=== PATIENT | female | born 2000 | race Caucasian/White ===

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

== ENCOUNTER → 2021-01-23 | Outpatient (CLI) | payer BC | LOC: LAB FS 10:23 | PROVIDERS: ATTEND Family Medicine | DX: Z00.00 Encounter for general adult medical examination without abnormal findings (principal); N92.6 Irregular menstruation, unspecified | CPT/HCPCS: 36415; 83036; 84443; 87210; 87491; 87591 ==

== ENCOUNTER 2021-04-07 08:15 | Outpatient (RCR) | payer BC | END 2021-07-06 | disposition home or self-care (01) | LOC: CARD 08:15 | PROVIDERS: ATTEND Family Medicine | DX: R00.2 Palpitations (principal) | CPT/HCPCS: 93225; 93226 ==

== ENCOUNTER → 2021-11-10 | Outpatient (CLI) | payer BC | LOC: LAB FS 09:52 | PROVIDERS: ATTEND Family Medicine | DX: Z32.01 Encounter for pregnancy test, result positive (principal) | CPT/HCPCS: 36415; 84702 ==

== ENCOUNTER → 2022-03-17 | Outpatient (CLI) | payer BC ==
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
== END ==
LOC: RAD FS 09:31
PROVIDERS: ATTEND Registered Nurse Emergency
DX: S19.9XXA Unspecified injury of neck, initial encounter (principal)
CPT/HCPCS: 72040

== ENCOUNTER → 2022-09-01 | Outpatient (CLI) | payer BC, MEDICAID ==
--- NOTE | 2022-09-01 15:19 | Diagnostic Imaging Report ---
INDICATION: anatomy survey. TECHNIQUE: Multiple real-time grayscale images were obtained over the gravid uterus. COMPARISON: None FINDINGS: The cervix measures 4.5 cm in length. There is a single live intrauterine in the breech position. The placenta is anterior in location, and there is no evidence of previa or placental abruption. The ANA measures 14.6 cm. anatomy survey was performed and the following structures are visualized and normal: Stomach, four-chamber heart, umbilical cord cord insertion, three-vessel cord, cerebellum, cisterna magna, cerebral ventricles, spine, right ventricular outflow tract, left ventricular outflow tract, kidneys, profile and extremities. Due to advanced gestational age, the maternal adnexa are suboptimally evaluated. Biometrical measurements are as follows: Biparietal 4.52 cm, age 19 weeks 5 days. Head circumference 17.28 cm, age 19 weeks 6 days. Abdominal circumference 13.83 cm, age 19 weeks 2 days. Femur length 3.11 cm, age 19 weeks 5 days. Sonographic estimate age: 19 weeks 5 days. Sonographic estimated date of delivery: 01/21/2023. Estimated Weight: 295 gm (+/- 43 gm). LMP percentile: 40%. heart rate: 144 beats per minute. number: 1 of 1. IMPRESSION: Single live intrauterine has normal anatomy survey. Dictated by: Dictated on workstation # [id number]
== END ==
LOC: RAD FS 09:42
PROVIDERS: ATTEND Obstetrics & Gynecology
DX: Z34.02 Encounter for supervision of normal first pregnancy, second trimester (principal); Z3A.19 19 weeks gestation of pregnancy
CPT/HCPCS: 76805

== ENCOUNTER 2022-10-27 18:30 | Outpatient (CLI) | payer BC, MEDICAID ==
[~2022-10-27] VITALS: Ht 167 cm; Wt 113.6 kg
[2022-10-27 19:22] VITALS: BP 116/73
[2022-10-27 19:40] LABS: BILIRUBIN,URINE NEGATIVE (NEGATIVE); CLARITY,URINE CLEAR; COLOR,URINE YELLOW; GLUCOSE, URINE (UA) NEGATIVE (NEGATIVE); KETONES,URINE NEGATIVE (NEGATIVE); LEUKOCYTE ESTERASE ,URINE NEGATIVE (NEGATIVE); NITRITE,URINE NEGATIVE (NEGATIVE); PROTEIN,URINE NEGATIVE (NEGATIVE)
[2022-10-27 19:52] LABS: BACTERIA,URINE TRACE /HPF; RBC,URINE RARE /HPF
[2022-10-27 20:05] VITALS: BP 123/72
[2022-10-27 20:15] VITALS: BP 123/72
--- NOTE | 2022-10-28 09:19 | Physician Query-Final Dx ---
10/28/22 0918: Clinic Account Progress/Dx Physician Query: Please give diagnosis Please include # weeks gestation Date of Service Oct 27, 2022 at 18:30 JOY CARROLL MD 10/29/22 0757: Clinic Account Progress/Dx DIAGNOSIS: Diagnosis False labor at 28 weeks gestation Oct 28, 2022 09:18 JOY CARROLL MD Oct 29, 2022 07:57
== END 2022-10-27 20:15 ==
LOC: LDRP 18:30 → WSo 18:30
PROVIDERS: ATTEND Obstetrics & Gynecology
DX: O26.93 Pregnancy related conditions, unspecified, third trimester (principal); O41.93X0 Disorder of amniotic fluid and membranes, unspecified, third trimester, not applicable or unspecified; Z3A.28 28 weeks gestation of pregnancy
CPT/HCPCS: 81000; 99214

== ENCOUNTER → 2022-12-02 | Outpatient (CLI) | payer BC, MEDICAID | LOC: LABNPT 14:56 | PROVIDERS: ATTEND Obstetrics & Gynecology | DX: O13.9 Gestational [pregnancy-induced] hypertension without significant proteinuria, unspecified trimester (principal); Z3A.00 Weeks of gestation of pregnancy not specified | CPT/HCPCS: 82570; 84156 ==

== ENCOUNTER → 2022-12-08 | Outpatient (CLI) | payer BC, MEDICAID ==
[~2022-12-08] MED LIST: ALBU8.5H6 PO; CEPH500T PO; LABE200T10 PO; PREN-37 PO
== END ==
LOC: LABNPT 12:18
PROVIDERS: ATTEND Obstetrics & Gynecology
DX: O13.9 Gestational [pregnancy-induced] hypertension without significant proteinuria, unspecified trimester (principal); Z3A.00 Weeks of gestation of pregnancy not specified
CPT/HCPCS: 82570; 84156

== ENCOUNTER 2022-12-11 16:49 | Outpatient (CLI) | payer BC, MEDICAID ==
[~2022-12-11] VITALS: Ht 167.7 cm; Wt 113.6 kg
[2022-12-11] MEDS ORDERED: LABE200T10 PO (17:14)
[2022-12-11] MEDS ORDERED: PREN-37 PO (17:16)
[2022-12-11] MEDS ORDERED: ALBU8.5H6 PO (17:16)
[2022-12-11 17:20] VITALS: BP 154/90
[2022-12-11 17:25] VITALS: BP 130/92
[2022-12-11 17:36] LABS: BILIRUBIN,URINE NEGATIVE (NEGATIVE); CLARITY,URINE CLEAR; COLOR,URINE YELLOW; GLUCOSE, URINE (UA) NEGATIVE (NEGATIVE); KETONES,URINE NEGATIVE (NEGATIVE); LEUKOCYTE ESTERASE ,URINE NEGATIVE (NEGATIVE); NITRITE,URINE NEGATIVE (NEGATIVE); PROTEIN,URINE 2+ (NEGATIVE)
[2022-12-11 17:49] LABS: RBC,URINE RARE /HPF; WBC,URINE 0-2 /HPF
[2022-12-11 17:50] LABS: BACTERIA,URINE MODERATE /HPF
[2022-12-11 17:55] VITALS: BP 138/85
[2022-12-11] MEDS ORDERED: CEPH500T PO (18:07)
[2022-12-11 18:15] VITALS: BP 138/85
--- NOTE | 2022-12-14 08:44 | Physician Query-Final Dx ---
GIO12/14/22 0844: Clinic Account Progress/Dx Physician Query: Please give diagnosis Please include # weeks gestation Date of Service Dec 11, 2022 at 16:49 DELMY TORIBIO DO 12/14/22 0946: Clinic Account Progress/Dx DIAGNOSIS: Diagnosis 33 week IUP Mild PreE Decreased movement GIO,NovDec 14, 2022 08:44 DELMY TORIBIO DO Dec 14, 2022 09:46
== END 2022-12-11 18:15 | disposition home or self-care (01) ==
LOC: LDRP 16:49 → WSo 16:49
PROVIDERS: ATTEND Obstetrics & Gynecology
DX: O36.8190 Decreased fetal movements, unspecified trimester, not applicable or unspecified (principal); Z3A.00 Weeks of gestation of pregnancy not specified
CPT/HCPCS: 81000; 87088; G0463; 99212

== ENCOUNTER → 2022-12-14 | Outpatient (CLI) | payer BC, MEDICAID | LOC: LABNPT 15:49 | PROVIDERS: ATTEND Obstetrics & Gynecology | DX: O14.93 Unspecified pre-eclampsia, third trimester (principal); Z3A.00 Weeks of gestation of pregnancy not specified | CPT/HCPCS: 82570; 84156 ==

== ENCOUNTER 2022-12-15 12:36 | Outpatient (CLI) | payer BC, MEDICAID ==
[~2022-12-15] VITALS: Ht 170 cm; Wt 120.2 kg
[2022-12-15 13:00] VITALS: BP 134/100
[2022-12-15 13:15] VITALS: BP 136/84
[2022-12-15 13:22] LABS: BASOPHILS % (AUTO) 0 % (0-10); EOSINOPHILS % (AUTO) 0 % (0-10); HEMATOCRIT 39 % (35-52); HEMOGLOBIN 13.5 g/dL (11.5-16.0); LYMPHOCYTES # (AUTO) 2.6 10^3/uL (1.0-4.0); LYMPHOCYTES % (AUTO) 22 % (12-44); MEAN CORPUSCULAR HEMOGLOBIN 30 pg (25-34); MEAN CORPUSCULAR HGB CONC 35 g/dL (32-36); MEAN CORPUSCULAR VOLUME 87 fL (80-99); MEAN PLATELET VOLUME 11.5 fL (9.0-12.2); MONOCYTES # (AUTO) 0.7 10^3/uL (0.0-1.0); MONOCYTES % (AUTO) 6 % (0-12); NEUTROPHILS # (AUTO) 8.3 10^3/uL (1.8-7.8); NEUTROPHILS % (AUTO) 71 % (42-75); PLATELET COUNT 192 10^3/uL (130-400); WHITE BLOOD COUNT 11.6 10^3/uL (4.3-11.0)
[2022-12-15 13:30] VITALS: BP 132/85
[2022-12-15 13:38] LABS: ALBUMIN 2.8 GM/DL (3.2-4.5); POTASSIUM 3.5 MMOL/L (3.6-5.0)
[2022-12-15 13:39] LABS: CALCIUM 8.6 MG/DL (8.5-10.1)
[2022-12-15 13:40] LABS: TOTAL PROTEIN 5.8 GM/DL (6.4-8.2)
[2022-12-15 13:42] LABS: BILIRUBIN,TOTAL 0.2 MG/DL (0.1-1.0)
[2022-12-15 13:44] LABS: CREATININE SERUM 0.69 MG/DL (0.60-1.30)
[2022-12-15 13:45] VITALS: BP 127/82
[2022-12-15 13:47] LABS: URIC ACID 6.2 MG/DL (2.6-7.2)
[2022-12-15 14:00] VITALS: BP 143/92
[2022-12-15 14:15] VITALS: BP 113/74
--- NOTE | 2022-12-16 07:45 | Physician Query-Final Dx ---
GIO,12/16/22 0745: Clinic Account Progress/Dx Physician Query: Please give diagnosis Please include # weeks gestation Date of Service Dec 15, 2022 at 12:36 DELMY TORIBIO DO 12/16/22 0950: Clinic Account Progress/Dx DIAGNOSIS: Diagnosis 34 week IUP PreE Mild GIO,NovDec 16, 2022 07:45 DELMY TORIBIO DO Dec 16, 2022 09:50
== END 2022-12-15 14:25 | disposition home or self-care (01) ==
LOC: WSo 12:36 → LDRP 12:36 → WSo 14:25
PROVIDERS: ATTEND Obstetrics & Gynecology
DX: O14.03 Mild to moderate pre-eclampsia, third trimester (principal); Z3A.34 34 weeks gestation of pregnancy
CPT/HCPCS: 80053; 84550; 85025; G0463; 36415; 99212

== ENCOUNTER → 2022-12-18 | Outpatient (CLI) | payer BC, MEDICAID | LOC: LABNPT 13:15 | PROVIDERS: ATTEND Obstetrics & Gynecology | DX: O14.93 Unspecified pre-eclampsia, third trimester (principal); Z3A.00 Weeks of gestation of pregnancy not specified | CPT/HCPCS: 82570; 84156 ==

== ENCOUNTER 2022-12-21 09:50 | Inpatient (IN) | payer BC, MEDICAID ==
[~2022-12-21] VITALS: Ht 167.7 cm; Wt 123.1 kg
[2022-12-21] VITALS (22 sets, daily range): BP systolic 120–158; BP diastolic 71–99
--- OUTSIDE RECORDS SUMMARY | 2022-12-21 10:05 | XMS REPORT | Clinical Summary ---
Author Author [facility] Organization [facility] Address Unknown Phone Unavailable Care Team Providers Care Spanish Medical Interpreter Name Role Phone PCP Unavailable Allergies Not on File Medications Not on file Active Problems Not on file Social History Date Tobacco Use Types Packs/Day Years Used Smoking Tobacco: Never Assessed Sex Assigned at Date Recorded Not on file Last Filed Vital Signs Not on file Plan of Treatment Health Maintenance Due Date Last Done Comments Hepatitis C Screen 2001 Td/Tdap# 2001 COVID-19 Vaccine (#1) 06/21/2002 HPV Vaccine (1 - 2-dose 2012 series) Influenza Vaccine (#1) 2022 Social Determinants of 11/01/2022 Health# MCV4 Vaccine Aged Out No longer eligible based on patient's age to complete this topic Pneumococcal Vaccine: Aged Out No longer eligib le based on patient's age to Pediatrics (0 to 5 Years) complete this topic and At-Risk Patients (6 to 64 Years) Results Not on filefrom Last 3 Months
[2022-12-21] MEDS ORDERED: CALCIUM GLUC. 10% 4.65 MEQ/10 ML VIAL IV PRN (10:15)
[2022-12-21] MEDS ORDERED: D5 LR IV SOLUTION 1,000 ML IV SCH (10:30)
[2022-12-21] MEDS ORDERED: MAGNESIUM 4 GM/100 ML IVPB 100 ML IV ONE (10:30)
[2022-12-21 10:36] LABS: BASOPHILS % (AUTO) 0 % (0-10); EOSINOPHILS # (AUTO) 0.1 10^3/uL (0.0-0.3); EOSINOPHILS % (AUTO) 1 % (0-10); HEMATOCRIT 38 % (35-52); HEMOGLOBIN 13.4 g/dL (11.5-16.0); LYMPHOCYTES # (AUTO) 2.6 10^3/uL (1.0-4.0); LYMPHOCYTES % (AUTO) 25 % (12-44); MEAN CORPUSCULAR HEMOGLOBIN 30 pg (25-34); MEAN CORPUSCULAR HGB CONC 35 g/dL (32-36); MEAN CORPUSCULAR VOLUME 86 fL (80-99); MEAN PLATELET VOLUME 11.7 fL (9.0-12.2); MONOCYTES # (AUTO) 0.7 10^3/uL (0.0-1.0); MONOCYTES % (AUTO) 7 % (0-12); NEUTROPHILS # (AUTO) 7.2 10^3/uL (1.8-7.8); NEUTROPHILS % (AUTO) 67 % (42-75); PLATELET COUNT 213 10^3/uL (130-400); WHITE BLOOD COUNT 10.7 10^3/uL (4.3-11.0)
[2022-12-21] MEDS: D5 LR IV SOLUTION 1,000 ML IV SCH ×3 (10:48→23:04)
[2022-12-21 10:51] LABS: ALBUMIN 2.7 GM/DL (3.2-4.5); POTASSIUM 3.9 MMOL/L (3.6-5.0)
[2022-12-21 10:52] LABS: CALCIUM 8.7 MG/DL (8.5-10.1)
[2022-12-21 10:53] LABS: TOTAL PROTEIN 5.4 GM/DL (6.4-8.2)
[2022-12-21 10:55] LABS: BILIRUBIN,TOTAL 0.2 MG/DL (0.1-1.0)
[2022-12-21 10:57] LABS: CREATININE SERUM 0.63 MG/DL (0.60-1.30)
[2022-12-21 11:00] LABS: MAGNESIUM 1.6 MG/DL (1.6-2.4); URIC ACID 5.7 MG/DL (2.6-7.2)
[2022-12-21] MEDS ORDERED: LABETALOL 200 MG (NORMODYNE) TAB PO SCH (11:00)
[2022-12-21] MEDS: MAGNESIUM SULFATE DRIP 500 ML IV SCH ×2 (11:32→21:03)
[2022-12-21] MEDS ORDERED: ACETAMINOPHEN 500 MG TAB (TYLENOL) PO PRN (19:00)
[2022-12-21] MEDS ORDERED: ACETAMINOPHEN 500 MG TAB (TYLENOL) ONE (19:01)
[2022-12-21] MEDS ORDERED: ONDANSETRON 4 MG/2 ML (SDV) Z0FRAN ONE (19:55)
[2022-12-21] MEDS ORDERED: HYDROmorphone 2 MG/ML VIAL (DILAUDID) ONE (19:55)
[2022-12-21] MEDS ORDERED: HYDROmorphone 2 MG/ML VIAL (DILAUDID) IVP ONE (20:00)
[2022-12-21] MEDS: ONDANSETRON 4 MG/2 ML (SDV) Z0FRAN IVP PRN (20:05)
[2022-12-21] MEDS: LABETALOL 200 MG (NORMODYNE) TAB PO SCH (21:02)
[2022-12-22] VITALS (82 sets, daily range): BP systolic 105–196; BP diastolic 53–109
[2022-12-22] MEDS: ONDANSETRON 4 MG/2 ML (SDV) Z0FRAN IVP PRN (00:09)
[2022-12-22] MEDS: ACETAMINOPHEN 500 MG TAB (TYLENOL) PO PRN ×2 (00:10→08:40)
[2022-12-22] MEDS: MAGNESIUM SULFATE DRIP 500 ML IV SCH ×2 (07:07→17:13)
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
[2022-12-22] MEDS ORDERED: AMPICILLIN FOR IV USE 2,000 MG in NS (IVPB) 50 ML IV SCH (07:59)
[2022-12-22] MEDS ORDERED: OXYTOCIN PRE-MIX DRIP 500 ML IV SCH (08:00)
[2022-12-22] MEDS: LABETALOL 200 MG (NORMODYNE) TAB PO SCH ×2 (08:40→21:40)
[2022-12-22] MEDS: D5 LR IV SOLUTION 1,000 ML IV SCH (12:38)
[2022-12-22] MEDS: AMPICILLIN FOR IV USE 1,000 MG in NS (IVPB) 50 ML IV SCH ×3 (12:38→20:15)
[2022-12-22] MEDS ORDERED: fentaNYL 2 mcg/ml BUPIVA 0.125 100 ML ONE (14:14)
[2022-12-22] MEDS ORDERED: BUPIVACAINE 0.25% 10 ML (SENSORCAINE) VIAL ONE (14:45)
[2022-12-22] MEDS ORDERED: fentaNYL INJ 100 MCG/2 ML AMP ONE (14:45)
[2022-12-22] MEDS: fentaNYL 2 mcg/ml BUPIVA 0.125 100 ML IV SCH ×2 (15:15→22:00)
[2022-12-22] MEDS ORDERED: NALOXONE 0.4 MG/ML 1 ML (NARCAN) VIAL IV PRN (15:30)
[2022-12-22] MEDS ORDERED: ONDANSETRON 4 MG/2 ML (SDV) Z0FRAN IV PRN (15:30)
[2022-12-22] MEDS ORDERED: CATHETER FLUSH 10 ML SYR IV PRN (15:30)
[2022-12-22] MEDS ORDERED: LACTATED RINGERS 1,000 ML IV ONE (15:30)
[2022-12-22] MEDS ORDERED: diphenhydrAMINE 50 MG/ML INJ (BENADRYL) IV PRN (15:30)
[2022-12-23] VITALS (34 sets, daily range): BP systolic 100–141; BP diastolic 54–90
[2022-12-23] MEDS: AMPICILLIN FOR IV USE 1,000 MG in NS (IVPB) 50 ML IV SCH ×2 (02:04→06:32)
[2022-12-23] MEDS: D5 LR IV SOLUTION 1,000 ML IV SCH ×2 (02:07→04:05)
[2022-12-23] MEDS: MAGNESIUM SULFATE DRIP 500 ML IV SCH (02:07)
[2022-12-23 04:39] LABS: ALBUMIN 2.5 GM/DL (3.2-4.5); POTASSIUM 4.1 MMOL/L (3.6-5.0)
[2022-12-23 04:40] LABS: CALCIUM 7.2 MG/DL (8.5-10.1)
[2022-12-23 04:41] LABS: TOTAL PROTEIN 5.2 GM/DL (6.4-8.2)
[2022-12-23 04:43] LABS: BILIRUBIN,TOTAL 0.5 MG/DL (0.1-1.0)
[2022-12-23 04:45] LABS: CREATININE SERUM 0.98 MG/DL (0.60-1.30)
[2022-12-23] MEDS: fentaNYL 2 mcg/ml BUPIVA 0.125 100 ML IV SCH (04:50)
[2022-12-23 05:07] LABS: BASOPHILS % (AUTO) 0 % (0-10); EOSINOPHILS % (AUTO) 0 % (0-10); HEMATOCRIT 36 % (35-52); HEMOGLOBIN 12.4 g/dL (11.5-16.0); LYMPHOCYTES # (AUTO) 1.5 10^3/uL (1.0-4.0); LYMPHOCYTES % (AUTO) 13 % (12-44); MEAN CORPUSCULAR HEMOGLOBIN 30 pg (25-34); MEAN CORPUSCULAR HGB CONC 35 g/dL (32-36); MEAN CORPUSCULAR VOLUME 88 fL (80-99); MEAN PLATELET VOLUME 11.4 fL (9.0-12.2); MONOCYTES # (AUTO) 0.7 10^3/uL (0.0-1.0); MONOCYTES % (AUTO) 6 % (0-12); NEUTROPHILS # (AUTO) 9.3 10^3/uL (1.8-7.8); NEUTROPHILS % (AUTO) 80 % (42-75); PLATELET COUNT 189 10^3/uL (130-400); WHITE BLOOD COUNT 11.6 10^3/uL (4.3-11.0)
[2022-12-23] MEDS ORDERED: NS (IVPB) 50 ML ONE (06:55)
[2022-12-23] MEDS ORDERED: ceFAZolin INJECTION 2,000 MG ONE (06:55)
[2022-12-23] MEDS ORDERED: CITRIC ACID/SOB CIT (BICITRA) 30 ML UDC ONE (06:55)
[2022-12-23] MEDS ORDERED: FAMOTIDINE 20MG/2ML IV (PEPCID) ONE (06:56)
[2022-12-23] MEDS ORDERED: LACTATED RINGERS 1,000 ML IV PRN ×2 (07:00)
[2022-12-23] MEDS ORDERED: METOCLOPRAMIDE INJ 10 MG/2 ML (REGLAN) IV ONE (07:00)
[2022-12-23] MEDS ORDERED: CATHETER FLUSH 10 ML SYR IV PRN (07:00)
[2022-12-23] MEDS ORDERED: CITRIC ACID/SOB CIT (BICITRA) 30 ML UDC PO ONE (07:00)
[2022-12-23] MEDS ORDERED: FAMOTIDINE 20MG/2ML IV (PEPCID) IV ONE (07:00)
[2022-12-23] MEDS ORDERED: fentaNYL INJ 100 MCG/2 ML AMP ONE (07:19)
[2022-12-23] MEDS ORDERED: ONDANSETRON 4 MG/2 ML (SDV) Z0FRAN ONE (07:19)
[2022-12-23] MEDS ORDERED: OXYTOCIN PRE-MIX DRIP 1,000 ML IV ONE (07:20)
--- NOTE | 2022-12-23 07:33 | Progress Note ---
Standard Progress Note Progress Notes/Assess & Plan Date Seen by a Provider: Dec 23, 2022 Time Seen by a Provider: 07:10 Progress/Assessment & Plan Patient sent in from office Wednesday after severe Pre E criteria were met. She was initially started on MgSO4 for seizure prophylaxis, labetalol 200 bid, and misoprostol Wednesday and overnight until Wednesday, she was started on Pitocin on Wednesday morning, AROM performed and internal monitors placed and IUPC. Epidural placed. Pitocin was used to augment labor to an adequate pattern, however, intolerance of adequate contraction pattern noted with every time it was reached. Patient progressed to 3 cm without further progression due to intolerance. Overnight on Wednesday pitocin stopped and fetus recovered, magnesium stopped due to depressive symptoms which resolved thereafter and BP remained stable so it was left off. Discussed with patient delivery via , at this point patient is ready to proceed with delivery via operative method. Risk reviewed, all questions answered and patient taken to OR for delivery. DELMY TORIBIO DO Dec 23, 2022 07:33
[2022-12-23] MEDS ORDERED: PHENYLEPHRINE 100 MCG/ML 10 ML (ANESTHESIA) SYR ONE (07:52)
[2022-12-23] MEDS ORDERED: KETOROLAC 30 MG/ML VIAL ONE (08:12)
[2022-12-23] MEDS ORDERED: BUPIVACAINE 0.25% 10 ML (SENSORCAINE) VIAL ONE (08:43)
[2022-12-23] MEDS ORDERED: HYDROmorphone 2 MG/ML VIAL (DILAUDID) IV ONE (09:00)
[2022-12-23] MEDS ORDERED: ONDANSETRON 4 MG/2 ML (SDV) Z0FRAN IVP PRN ×2 (09:00→10:00)
[2022-12-23] MEDS ORDERED: morphine INJ 10 MG/ML 1ML (SYR OR VIAL) IVP ONE (09:00)
[2022-12-23] MEDS ORDERED: NALOXONE 0.4 MG/ML 1 ML (NARCAN) VIAL IV PRN ×3 (09:00→10:00)
[2022-12-23] MEDS ORDERED: METOCLOPRAMIDE INJ 10 MG/2 ML (REGLAN) IV PRN (09:00)
[2022-12-23] MEDS ORDERED: ONDANSETRON 4 MG/2 ML (SDV) Z0FRAN IV PRN (09:00)
[2022-12-23] MEDS ORDERED: diphenhydrAMINE 50 MG/ML INJ (BENADRYL) IV PRN (09:00)
--- NOTE | 2022-12-23 09:28 | Anesthesia-Regional Post-Op ---
Regional Patient Condition Mental Status: Alert, Oriented x3 Circulation: Same as Pre-Op Headache: Absent Sensation: Full Recovery Motor Block: Absent Post Op Complications Complications None Follow Up Care/Instructions Patient Instructions None needed. Anesthesia/Patient Condition Patient is doing well, no complaints, stable vital signs, no apparent adverse anesthesia problems. No complications reported per nursing. PEYTON CHAMBERS CRNA Dec 23, 2022 09:28
[2022-12-23] MEDS ORDERED: OXYTOCIN PRE-MIX DRIP 500 ML IV SCH (10:00)
[2022-12-23] MEDS ORDERED: TETANUS,DIPTH,PERTUSS P/F (BOOSTRIX) 0.5 ML VIAL IM SCH (10:00)
[2022-12-23] MEDS ORDERED: KETOROLAC 30 MG/ML VIAL IV SCH (10:00)
[2022-12-23] MEDS ORDERED: MEASLES,MUMPS,RUBELLA 1 EA INJ SC SCH (10:00)
[2022-12-23] MEDS: LABETALOL 200 MG (NORMODYNE) TAB PO SCH ×2 (10:18→21:02)
[2022-12-23] MEDS: HYDROcodone/APAP 5 MG/325 MG (LORTAB) TAB PO PRN ×2 (12:04→18:50)
[2022-12-23] MEDS: METOCLOPRAMIDE 10 MG (REGLAN) TAB PO SCH ×2 (12:05→18:50)
--- NOTE | 2022-12-23 13:53 | OPERATIVE REPORT ---
DATE OF SERVICE: 12/23/2022 PREOPERATIVE DIAGNOSES: 1. A 22-year-old at 35 weeks and 6 days' gestation. 2. Severe preeclampsia. 3. intolerance of labor. POSTOPERATIVE DIAGNOSES: 1. A 22-year-old at 35 weeks and 6 days' gestation. 2. Severe preeclampsia. 3. intolerance of labor. PROCEDURE: Primary low transverse section. SURGEON: Troy Toribio DO PALEOBOTANIST: Dr. Aris Sykes, who was necessary for manipulation and retraction throughout the procedure. ANESTHESIA: Spinal. ESTIMATED BLOOD LOSS: 200 mL. URINE OUTPUT: 100 mL clear at the end of the procedure. FLUIDS: 1500 mL lactated Ringer's solution. FINDINGS: Live male infant weighing 4 pounds 12 ounces, Apgars of 7 and 9. Grossly normal-appearing uterus, bilateral fallopian tubes and ovaries. SPECIMENS: Placenta. INDICATIONS FOR PROCEDURE: This 22-year-old female was brought in for induction of labor due to severe preeclampsia. Please see the preoperative note for complete details pertaining to the patient's labor course and indications for surgery. After all the questions were answered by the patient and her attending family member, consent was obtained, the patient was taken to the operating room. OPERATIVE REPORT IN DETAIL: Once in the operating room, spinal anesthesia was administered and found to be adequate. She was placed in the supine position with leftward tilt, prepped and draped in normal sterile fashion where a timeout was performed. Anesthesia was tested and then made a Pfannenstiel skin incision with a knife and carried down to the underlying fascia using Bovie cautery. The fascial incision extended laterally using Bovie cautery. The superior aspect of the fascial incision was then grasped with Orion clamps and dissected off the underlying rectus muscles. The inferior aspect of the fascial incision was then grasped with Orion clamps, tented up and dissected off the underlying rectus muscles. The rectus muscles were dissected down the midline using sharp dissection, which exposed the peritoneum, which I entered bluntly, extended using blunt traction. Young ring retractor was placed in the peritoneal incision, which offered excellent lateral sidewall retraction. I identified the lower uterine segment and was found to be thinned out and made a low transverse incision to the vesicouterine peritoneum and bluntly dissected off the lower uterine segment, creating a bladder flap. I then proceeded my myotomy until membranes were visualized, at which point I extended the uterine incision laterally and superiorly using bandage scissors. Amniotomy was performed in the process of doing this, clear fluid was noted. The was found in vertex presentation with gentle fundal pressure. The infant's head was elevated to the incision where the nares and oropharynx were bulb suctioned. Anterior and posterior shoulders were delivered. The was brought to the operative field where cord was doubly clamped and cut. was handed off to waiting nurses in attendance. Cord blood was collected. Three-vessel cord with intact placenta was delivered spontaneously thereafter. IV Pitocin was initiated to facilitate uterine contraction. Uterine fundus confirmed by manual massage. The uterus was then exteriorized and cleared of all endometrial clots and debris. I then proceeded with closing the uterine incision using 0 Vicryl suture in a running locked fashion. Second layer of imbricating 0 Monocryl was placed. Excellent hemostasis was noted after doing this. I then placed the uterus back in the pelvis and copiously irrigated the pelvis using normal saline. Once again, there was no active bleeding noted from any of my dissection planes. I placed Interceed antiadhesive over my low transverse incision. I removed the Young ring retractor and then proceeded with closing the peritoneum using 3-0 Vicryl suture in a running fashion. Rectus muscles were reapproximated using 3-0 Vicryl suture in interrupted fashion. The fascia was reapproximated using 0 Vicryl suture in a running fashion. The subcutaneous tissue was reapproximated using 3-0 plain interrupted subcutaneous stitch and skin reapproximated using 4-0 Monocryl running subcuticular. Dermabond was applied to incision and sterile dressing was adhesed with white tape. The patient tolerated the procedure well and was taken to recovery area in stable condition. Lap and sponge counts were correct at the end of the procedure. Instrument counts correct as well. Two grams of Ancef were given preoperatively for infection prophylaxis. Job ID: [id number] DocumentID: [id number] Dictated Date: 12/23/2022 08:56:40 Software Development Analyst Date: 12/23/2022 13:51:00 Dictated By: TROY TORIBIO DO
[2022-12-23] MEDS ORDERED: CATHETER FLUSH 10 ML SYR IV SCH (14:00)
[2022-12-23] MEDS ORDERED: IBUPROFEN 600 MG (MOTRIN) TAB PO ONE ×2 (15:04→20:59)
[2022-12-23] MEDS: IBUPROFEN 600 MG (MOTRIN) TAB PO SCH (21:02)
[2022-12-23] MEDS: DOCUSATE SODIUM 100 MG (COLACE) CAP PO SCH (21:02)
[2022-12-24] VITALS: BP 119/70
[2022-12-24 03:05] VITALS: BP 143/94
[2022-12-24] MEDS: IBUPROFEN 600 MG (MOTRIN) TAB PO SCH ×5 (03:05→22:03)
[2022-12-24 05:34] LABS: BASOPHILS % (AUTO) 0 % (0-10); EOSINOPHILS % (AUTO) 0 % (0-10); HEMATOCRIT 31 % (35-52); HEMOGLOBIN 10.4 g/dL (11.5-16.0); LYMPHOCYTES # (AUTO) 1.9 10^3/uL (1.0-4.0); LYMPHOCYTES % (AUTO) 17 % (12-44); MEAN CORPUSCULAR HEMOGLOBIN 30 pg (25-34); MEAN CORPUSCULAR HGB CONC 33 g/dL (32-36); MEAN CORPUSCULAR VOLUME 90 fL (80-99); MONOCYTES % (AUTO) 9 % (0-12); NEUTROPHILS # (AUTO) 7.9 10^3/uL (1.8-7.8); NEUTROPHILS % (AUTO) 73 % (42-75); PLATELET COUNT 153 10^3/uL (130-400); WHITE BLOOD COUNT 10.9 10^3/uL (4.3-11.0)
[2022-12-24] MEDS: METOCLOPRAMIDE 10 MG (REGLAN) TAB PO SCH ×4 (06:10→18:59)
[2022-12-24] MEDS: HYDROcodone/APAP 5 MG/325 MG (LORTAB) TAB PO PRN ×4 (06:10→18:59)
[2022-12-24] MEDS ORDERED: polyethylene glycoL POWDER 17 GM (MIRALAX) PACK PO ONE ×2 (06:15→09:45)
--- NOTE | 2022-12-24 08:15 | Postpartum Progress Note ---
Note Note Day # 1 Subjective: Patient is without complaints. Ambulating, voiding. Tolerating a regular diet without nausea or vomiting. Normal lochia. Pain is well controlled with oral pain medications. Objective: Physical Exam: General - Alert and oriented, no apparent distress Abdomen - Soft, appropriately tender to palpation, non-distended, fundus firm at umbilicus Extremities - no edema, negative Lavelle's bilaterally Incision- c/d/i Assessment: POD 1 PLTCS PreE- labile BP on labetalol Acute blood loss anemia Plan: Routine care. Encourage breast feeding. Encourage ambulation. Ferrous sulfate supplementation. Plan for discharge tomorrow Vitals - Labs Vital Signs - I&O Vital Signs Date Time Temp Pulse Resp B/P (MAP) Pulse Ox O2 Delivery O2 Flow Rate FiO2 12/24/22 03:05 36.6 90 18 143/94 (110) 98 Room Air 12/24/22 00:00 36.7 85 18 119/70 (86) 95 Room Air 12/23/22 21:00 36.0 85 18 134/90 (105) 99 Room Air 12/23/22 17:08 36.6 78 18 112/68 (83) 98 Room Air 12/23/22 13:56 36.6 86 18 141/90 (107) 97 Room Air 12/23/22 10:05 36.6 71 18 116/75 (89) 99 Room Air 12/23/22 09:15 18 101/75 (84) 93 Room Air 12/23/22 09:15 Room Air 12/23/22 09:00 Room Air 12/23/22 09:00 36.5 20 104/70 (81) 99 Room Air 12/23/22 08:45 Room Air 12/23/22 08:45 36.6 20 109/62 (78) 97 Room Air 12/23/22 08:30 Room Air 12/23/22 08:30 36.5 18 105/60 (75) 98 Room Air I & O 12/24/22 07:00 Intake Total 1700 ml Output Total 900 ml Balance 800 ml Labs Laboratory Tests 12/24/22 05:15: White Blood Count 10.9, Red Blood Count 3.47L, Hemoglobin 10.4L, Hematocrit 31L, Mean Corpuscular Volume 90, Mean Corpuscular Hemoglobin 30, Mean Corpuscular Hemoglobin Concent 33, Red Cell Distribution Width 12.7, Platelet Count 153, Mean Platelet Volume 11.0, Immature Granulocyte % (Auto) 1, Neutrophils (%) (Auto) 73, Lymphocytes (%) (Auto) 17, Monocytes (%) (Auto) 9, Eosinophils (%) (Auto) 0, Basophils (%) (Auto) 0, Neutrophils # (Auto) 7.9H, Lymphocytes # (Auto) 1.9, Monocytes # (Auto) 1.0, Eosinophils # (Auto) 0.0, Basophils # (Auto) 0.0, Immature Granulocyte # (Auto) 0.1 DELMY TORIBIO DO Dec 24, 2022 08:15
--- NOTE | 2022-12-24 08:16 | Discharge Inst-Women's Service ---
Discharge Inst-Women's Serv Depart Medication/Instructions New, Converted or Re-Newed RX: Transmitted to Pharmacy Final Diagnosis POD 2 PLTCS Severe PreE Problems Reviewed?: Yes Consults/Follow Up Additional Follow Up: Yes Orders/Referrals Dr. Cedeno in 5-7 days and in 6 weeks Activity Activity: Activity as Tolerated Driving Instructions: No Driving for 1 Week NO SMOKING: NO SMOKING Nothing Inside Vagina: No Douching, No [place], No Tampons Diet Discharge Diet: No Restrictions Symptoms to Report to : Bleeding Excessive, Pain Increased, Fever Over 101 Degrees F, Vaginal Bleeding Increase, Questions/Concerns For Any Problems or Questions: Contact Your Physician Skin/Wound Care Infection Signs and Symptoms: Increased Redness, Foul Odor of Wound, Increased Drainage, Skin Itchy or Has a Rash, Increased Swelling, Temperature Above 101 F Operative Area Clean and Dry: Keep Incision Clean/Dry Stitches/Stephan/Dermabond: Dermabond, Care of Stitches Bathing Instructions: DELMY Do DO Dec 24, 2022 08:16
[2022-12-24] MEDS ORDERED: IBUP-844 PO (08:18)
[2022-12-24] MEDS ORDERED: LABE200T10 PO (08:18)
[2022-12-24] MEDS ORDERED: DOCU100C37 PO (08:18)
[2022-12-24] MEDS ORDERED: ACHD5005 PO (08:18)
[2022-12-24] MEDS: LABETALOL 200 MG (NORMODYNE) TAB PO SCH ×2 (09:27→22:03)
[2022-12-24] MEDS: FUROSEMIDE 20 MG (LASIX) TAB PO SCH (09:27)
[2022-12-24] MEDS: DOCUSATE SODIUM 100 MG (COLACE) CAP PO SCH ×2 (09:27→22:03)
[2022-12-24 09:30] VITALS: BP 135/79
[2022-12-24] MEDS ORDERED: IBUPROFEN 600 MG (MOTRIN) TAB PO SCH (10:00)
[2022-12-24 15:40] VITALS: BP 143/89
[2022-12-24 22:03] VITALS: BP 146/88
[2022-12-25] MEDS: METOCLOPRAMIDE 10 MG (REGLAN) TAB PO SCH ×3 (00:59→13:14)
[2022-12-25 05:03] VITALS: BP 136/87
[2022-12-25] MEDS: IBUPROFEN 600 MG (MOTRIN) TAB PO SCH ×2 (05:09→13:14)
[2022-12-25] MEDS: HYDROcodone/APAP 5 MG/325 MG (LORTAB) TAB PO PRN ×2 (05:10→13:14)
--- NOTE | 2022-12-25 08:52 | Postpartum Progress Note ---
Note Note Day # 2 Subjective: Patient is without complaints. Ambulating, voiding. Tolerating a regular diet without nausea or vomiting. Normal lochia. Pain is well controlled with oral pain medications. Physical Exam: General - Alert and oriented, no apparent distress Abdomen - Soft, appropriately tender to palpation, non-distended, fundus firm at umbilicus; incision c/d/i Extremities - no edema, negative Lavelle's bilaterally Assessment: Post- day # 2, status post PLTCS Recovering well, hemodynamically stable Acute blood loss anemia Pre-E (on labetalol) Plan: Routine care. Encourage breast feeding. Encourage ambulation. Ferrous sulfate supplementation. Plan for discharge today Vitals - Labs Vital Signs - I&O Vital Signs Date Time Temp Pulse Resp B/P (MAP) Pulse Ox O2 Delivery O2 Flow Rate FiO2 12/25/22 05:03 36.8 89 18 136/87 (103) 100 Room Air 12/24/22 22:03 36.8 100 18 146/88 (107) 99 Room Air 12/24/22 20:59 Room Air 12/24/22 15:40 36.9 96 18 143/89 (107) 98 Room Air 12/24/22 09:30 37.3 95 18 135/79 (97) 97 Room Air I & O 12/25/22 07:00 Intake Total 600 ml Balance 600 ml DONNA HANNAH APRN Dec 25, 2022 08:52
[2022-12-25 09:15] VITALS: BP 141/89
[2022-12-25] MEDS: DOCUSATE SODIUM 100 MG (COLACE) CAP PO SCH (09:24)
[2022-12-25] MEDS: LABETALOL 200 MG (NORMODYNE) TAB PO SCH (09:24)
[2022-12-25] MEDS: FUROSEMIDE 20 MG (LASIX) TAB PO SCH (09:25)
[2022-12-25] MEDS ORDERED: ACHD5005 PO (12:09)
[2022-12-25 13:15] VITALS: BP 135/85
[2022-12-25 17:20] VITALS: BP 141/78
[2022-12-25 18:30] VITALS: BP 141/78
== END 2022-12-25 18:30 | disposition home or self-care (01) | DRG 787 ==
LOC: LDRP 09:50
PROVIDERS: ADMIT Obstetrics & Gynecology; ATTEND Obstetrics & Gynecology
PROC: 10D00Z1 Extraction of Products of Conception, Low, Open Approach (ICD-10-PCS; principal; 2022-12-23 07:35)
DX: O14.14 Severe pre-eclampsia complicating childbirth (principal); D62 Acute posthemorrhagic anemia; Z37.0 Single live birth; Z3A.35 35 weeks gestation of pregnancy; O60.14X0 Preterm labor third trimester with preterm delivery third trimester, not applicable or unspecified; O13.4 Gestational [pregnancy-induced] hypertension without significant proteinuria, complicating childbirth; O90.81 Anemia of the puerperium; O77.9 Labor and delivery complicated by fetal stress, unspecified
CPT/HCPCS: 36415; 80053; 83033; 83735; 84550; 85025; 86780; 86850; 86900; 86901; 90715; 94664

== ENCOUNTER 2023-09-16 23:13 | Emergency (ER) | payer BC, MEDICAID ==
[~2023-09-16] VITALS: Ht 167 cm; Wt 99.7 kg
[2023-09-16 23:13] VITALS: BP 131/88
[~2023-09-16 23:13] MED LIST changes: +ACHD5005 PO; +DOCU100C37 PO; +IBUP-844 PO
[2023-09-16 23:55] LABS: BASOPHILS # (AUTO) 0.1 10^3/uL (0.0-0.1); BASOPHILS % (AUTO) 1 % (0-10); EOSINOPHILS # (AUTO) 0.2 10^3/uL (0.0-0.3); EOSINOPHILS % (AUTO) 2 % (0-10); HEMATOCRIT 44 % (35-52); LYMPHOCYTES # (AUTO) 3.8 10^3/uL (1.0-4.0); LYMPHOCYTES % (AUTO) 45 % (12-44); MEAN CORPUSCULAR HEMOGLOBIN 30 pg (25-34); MEAN CORPUSCULAR HGB CONC 34 g/dL (32-36); MEAN CORPUSCULAR VOLUME 88 fL (80-99); MEAN PLATELET VOLUME 10.5 fL (9.0-12.2); MONOCYTES # (AUTO) 0.5 10^3/uL (0.0-1.0); MONOCYTES % (AUTO) 6 % (0-12); NEUTROPHILS % (AUTO) 47 % (42-75); PLATELET COUNT 294 10^3/uL (130-400); WHITE BLOOD COUNT 8.5 10^3/uL (4.3-11.0)
[2023-09-17 00:01] LABS: BILIRUBIN,URINE NEGATIVE (NEGATIVE); CLARITY,URINE SL CLOUDY; COLOR,URINE YELLOW; GLUCOSE, URINE (UA) NEGATIVE (NEGATIVE); KETONES,URINE NEGATIVE (NEGATIVE); LEUKOCYTE ESTERASE ,URINE NEGATIVE (NEGATIVE); NITRITE,URINE POSITIVE (NEGATIVE); PROTEIN,URINE NEGATIVE (NEGATIVE)
[2023-09-17 00:11] LABS: BACTERIA,URINE LARGE /HPF; WBC,URINE 0-2 /HPF
[2023-09-17 00:12] LABS: URINE OTHER CLUE CELLS PRESENT /HPF
[2023-09-17 00:19] LABS: AMPHETAMINE SCREEN, URINE NEGATIVE (NEGATIVE); BARBITURATE SCREEN URINE NEGATIVE (NEGATIVE); CANNABINOID SCREEN, URINE NEGATIVE (NEGATIVE); COCAINE SCREEN URINE NEGATIVE (NEGATIVE); METHADONE STAT NEGATIVE (NEGATIVE); OPIATE SCREEN URINE NEGATIVE (NEGATIVE); OXYCODONE STAT NEGATIVE (NEGATIVE); TRICYCLIC ANTIDEPRESSANTS SCRE NEGATIVE (NEGATIVE)
[2023-09-17 00:21] LABS: BILIRUBIN,TOTAL 0.3 MG/DL (0.1-1.0); CALCIUM 10.1 MG/DL (8.5-10.1); CREATININE SERUM 0.96 MG/DL (0.60-1.30)
[2023-09-17 00:40] LABS: ALBUMIN 4.5 GM/DL (3.2-4.5)
--- NOTE | 2023-09-17 01:03 | ED General ---
General Chief Complaint: Cardiac/General Problems Stated Complaint: DIZZY FOR 2 WEEKS Nursing Triage Note: Patient to ER via POV w mom c/o face numb, heart racing/skips a beat, felt like she was going to pass out. Patient states it happend twice tonight. Been going on the last two weeks off and on. Patient went to dr they said to take motrin. History of Present Illness Date Seen by Provider: Sep 17, 2023 Time Seen by Provider: 23:10 Initial Comments 22-year-old female with PMH of asthma is here with complaints of dizziness with a sensation of a racing heart or skipped beats in her heart, and felt like pa ssing out. Patient did not have loss of consciousness. Patient had 2 episodes of it tonight and reports that she has been having the symptoms intermittently for the past 2 weeks. Today patient was just standing and cooking when this occurred. Patient states that it is not dependent on head movement or when she stands or sits up. Patient went and saw her doctor who told her to take Motrin. Patient vapes. Denies fever and chills, cough, congestion, shortness of breath, chest pain, abdominal pain, diarrhea, hearing difficulties. Patient also reports that she symptoms feels fullness in her ears. Allergies and Home Medications Allergies Coded Allergies: No Known Drug Allergies (Unverified , 08/27/20) Patient Home Medication List Home Medication List Reviewed: Yes Albuterol Sulfate (Ventolin Hfa) 90 Mcg Hfa.aer.ad, 2 PUFF PO QID PRN for AIR HUNGER, (Reported) Entered as Reported by: OTONIEL HEARN on 12/11/22 1716 Docusate Sodium (Docusate Sodium) 100 Mg Capsule, 100 MG PO BID PRN for CONST IPATION-1ST LINE Prescribed by: DELMY TORIBIO on 12/24/22 0818 Hydrocodone/Acetaminophen (Hydrocodone-Acetamin 5-325 mg) 5 Mg-325 Mg Tablet, 2 EA PO Q6H PRN for PAIN-MODERATE (5-7) Prescribed by: DELMY TORIBIO on 12/25/22 1210 Ibuprofen (Ibu) 600 Mg Tablet, 600 MG PO Q6H Prescribed by: DELMY TORIBIO on 12/24/22 0818 Labetalol HCl (Labetalol HCl) 200 Mg Tablet, 200 MG PO BID Prescribed by: DELMY TORIBIO on 12/24/22 0818 Vit/Iron Fumarate/FA ( Tablet) 27 Mg Iron-800 Mcg Tablet, 1 EACH PO DAILY, (Reported) Entered as Reported by: OTONIEL HEARN on 12/11/22 1716 Review of Systems Review of Systems Constitutional: see HPI, dizziness EENTM: no symptoms reported Respiratory: no symptoms reported Cardiovascular: palpitations Gastrointestinal: no symptoms reported Genitourinary: no symptoms reported Musculoskeletal: no symptoms reported Skin: no symptoms reported Psychiatric/Neurological: Anxiety Past [id number]-[id number] Hx Patient Social History Use of E-Cig and/or Vaping dev: Yes E-Cig or Vaping type used: Nicotine Substance use?: No Alcohol Use?: No Past Medical History Surgeries: No Respiratory: Yes Asthma Cardiac: No Neurological: No Genitourinary: No Gastrointestinal: No Musculoskeletal: No Endocrine: No HEENT: No Cancer: No Psychosocial: Yes Anxiety Integumentary: No Blood Disorders: No Physical Exam Vital Signs Vital Signs - First Documented 09/16/23 23:13 Temp 36.6 Pulse 77 Resp 22 B/P (MAP) 131/88 (102) Pulse Ox 98 O2 Delivery Room Air Capillary Refill : Less Than 3 Seconds Height, Weight, BMI Height: '" Weight: lbs. oz. kg; 35.00 BMI Method: General Appearance: No Apparent Distress, WD/WN HEENT: PERRL/EOMI, TMs Normal, Normal ENT Inspection, Pharynx Normal Neck: Full Range of Motion, Normal Inspection, Non Tender, Supple Respiratory: Chest Non Tender, Lungs Clear, Normal Breath Sounds Cardiovascular: Regular Rate, Rhythm (Occasional skipped beat on auscultation), No Edema Gastrointestinal: Normal Bowel Sounds, Non Tender, Soft Back: Normal Inspection, No CVA Tenderness, No Vertebral Tenderness Neurologic/Psychiatric: Alert, Oriented x3, No Motor/Sensory Deficits, Normal Mood/Affect, grooming assistant II-XII Norm as Tested Skin: Normal Color Progress/Results/Core Measures Suspected Sepsis SIRS Temperature: Pulse: 77 Respiratory Rate: 22 Laboratory Tests 09/16/23 23:25: White Blood Count 8.5 Blood Pressure 131 /88 Mean: 102 Laboratory Tests 09/16/23 23:25: Creatinine 0.96, Platelet Count 294, Total Bilirubin 0.3 Results/Orders Lab Results Laboratory Tests Test 09/16/23 23:25 Range/Units White Blood Count 8.5 4.3-11.0 10^3/uL Red Blood Count 5.05 3.80-5.11 10^6/uL Hemoglobin 15.0 11.5-16.0 g/dL Hematocrit 44 35-52 % Mean Corpuscular Volume 88 80-99 fL Mean Corpuscular Hemoglobin 30 25-34 pg Mean Corpuscular Hemoglobin Concent 34 32-36 g/dL Red Cell Distribution Width 11.9 10.0-14.5 % Platelet Count 294 130-400 10^3/uL Mean Platelet Volume 10.5 9.0-12.2 fL Immature Granulocyte % (Auto) 0 % Neutrophils (%) (Auto) 47 42-75 % Lymphocytes (%) (Auto) 45 H 12-44 % Monocytes (%) (Auto) 6 0-12 % Eosinophils (%) (Auto) 2 0-10 % Basophils (%) (Auto) 1 0-10 % Neutrophils # (Auto) 4.0 1.8-7.8 10^3/uL Lymphocytes # (Auto) 3.8 1.0-4.0 10^3/uL Monocytes # (Auto) 0.5 0.0-1.0 10^3/uL Eosinophils # (Auto) 0.2 0.0-0.3 10^3/uL Basophils # (Auto) 0.1 0.0-0.1 10^3/uL Immature Granulocyte # (Auto) 0.0 0.0-0.1 10^3/uL Percent Immature Platelet Fraction 4.7 0.0-7.6 % Urine Color YELLOW Urine Clarity SL CLOUDY Urine pH 6.0 5-9 Urine Specific [place] 1.025 H 1.016-1.022 Urine Protein NEGATIVE NEGATIVE Urine Glucose (UA) NEGATIVE NEGATIVE Urine Ketones NEGATIVE NEGATIVE Urine Nitrite POSITIVE H NEGATIVE Urine Bilirubin NEGATIVE NEGATIVE Urine Urobilinogen 0.2 < = 1.0 MG/DL Urine Leukocyte Esterase NEGATIVE NEGATIVE Urine RBC (Auto) NEGATIVE NEGATIVE Urine RBC NONE /HPF Urine WBC 0-2 /HPF Urine Squamous Epithelial Cells 5-10 /HPF Urine Crystals NONE /LPF Urine Bacteria LARGE H /HPF Urine Casts NONE /LPF Urine Mucus LARGE H /LPF Urine Other CLUE CELLS PRESENT /HPF Urine Culture Indicated YES Sodium Level 140 135-145 MMOL/L Potassium Level 4.0 3.6-5.0 MMOL/L Chloride Level 102 98-107 MMOL/L Carbon Dioxide Level 29 21-32 MMOL/L Anion Gap 9 5-14 MMOL/L Blood Urea Nitrogen 15 7-18 MG/DL Creatinine 0.96 0.60-1.30 MG/DL Estimat Glomerular Filtration Rate 86 BUN/Creatinine Ratio 16 Glucose Level 92 70-105 MG/DL Calcium Level 10.1 8.5-10.1 MG/DL Corrected Calcium 9.7 8.5-10.1 MG/DL Magnesium Level 2.0 1.6-2.4 MG/DL Total Bilirubin 0.3 0.1-1.0 MG/DL Aspartate Amino Transf (AST/SGOT) 19 5-34 U/L Alanine Aminotransferase (ALT/SGPT) 25 0-55 U/L Alkaline Phosphatase 87 40-136 U/L Total Protein 8.0 6.4-8.2 GM/DL Albumin 4.5 3.2-4.5 GM/DL Urine Opiates Screen NEGATIVE NEGATIVE Urine Oxycodone Screen NEGATIVE NEGATIVE Urine Methadone Screen NEGATIVE NEGATIVE Urine Barbiturates Screen NEGATIVE NEGATIVE Ur Tricyclic Antidepressants Screen NEGATIVE NEGATIVE Urine Phencyclidine Screen NEGATIVE NEGATIVE Urine Amphetamines Screen NEGATIVE NEGATIVE Urine Methamphetamines Screen NEGATIVE NEGATIVE Urine Benzodiazepines Screen NEGATIVE NEGATIVE Urine Cocaine Screen NEGATIVE NEGATIVE Urine Cannabinoids Screen NEGATIVE NEGATIVE My Orders Orders - BRANDIN NGUYEN MD Cbc And Automated Diff (09/16/23 23:23) Comprehensive Metabolic Panel (09/16/23 23:23) Ua Culture If Indicated (09/16/23 23:23) Drug Screen Stat (Urine) (09/16/23 23:23) Magnesium (09/16/23 23:23) Continuous Ekg Monitoring (09/16/23 23:36) Ekg Tracing (09/16/23 23:36) Urine Culture (09/16/23 23:25) Orthostatic Vital Signs (Adult (09/17/23 00:31) Vital Signs/I&O 09/16/23 23:13 Temp 36.6 Pulse 77 Resp 22 B/P (MAP) 131/88 (102) Pulse Ox 98 O2 Delivery Room Air Capillary Refill : Less Than 3 Seconds Blood Pressure Mean: 102 Progress Note : Progress Note 1. DIZZINESS & PALPITATIONS: ANXIETY/ CARDIAC CAUSE/ VAPING: - CBC/ CMP: unremarkable - UA/UDS: negative - Causes of her symptoms include anxiety, cardiac on, and vaping. -Advised patient to follow-up with cardiology and PCP and obtain a Holter monitor to monitor her heart rhythm. This could be causing her symptoms -Advised to stop vaping as this can contribute to her palpitations and anxiety. -Advised adequate hydration -Will give a take-home pack of meclizine 25 mg to be taken every 6 hours only as needed for dizziness. If this is helping, patient can see her PCP for a prescription. -The patient was seen in the ED, and treated appropriately to presentation at a specific point in time. Patient is informed that there is a possibility that disease and illness can evolve and change in acuity rapidly or slowly after patient is discharged from the ER. Precautionary advice given to the patient for immediate return to ER if symptoms worsen or do not resolve, and to seek emergency care sooner rather than later. Pt also advised on the importance of PCP follow up and compliance with management and follow up plan with PCP and/or specialist, as this is part of the management plan. Pt verbally expressed understanding. Departure Impression Primary Impression: Heart palpitations Additional Impressions: Skipped heart beats Vaping-related disorder Anxiety Disposition: 01 HOME, SELF-CARE Condition: Stable Departure-Patient Inst. Referrals: BANDAR BARRON MD (PCP/Family) Primary Care Physician Patient Instructions: Vaping, Palpitations ED, Anxiety, Adult ED Add. Discharge Instructions: -Advised patient to follow-up with cardiology and PCP and obtain a Holter monitor to monitor her heart rhythm. This could be causing her symptoms -Advised to stop vaping as this can contribute to her palpitations and anxiety. -Advised adequate hydration -Will give a take-home pack of meclizine 25 mg to be taken every 6 hours only as needed for dizziness. If this is helping, patient can see her PCP for a prescription. All discharge instructions reviewed with patient and/or family. Voiced understanding. BRANDIN NGUYEN MD Sep 17, 2023 01:03
[2023-09-17] MEDS ORDERED: RX-MECLIZINE HCL (ANTIVERT) 25 MG TAB #4 PPK PO PRN (01:15)
== END 2023-09-17 01:10 | disposition home or self-care (01) ==
LOC: EDUNIT# 23:13 → ER FS 23:17
DX: F41.9 Anxiety disorder, unspecified (principal); U07.0 Vaping-related disorder; F17.290 Nicotine dependence, other tobacco product, uncomplicated
CPT/HCPCS: 36415; 80053; 80306; 81000; 83735; 84703; 85025; 87088; 93005